=== PATIENT | female | born 1995 | race African-American/Black ===

== ENCOUNTER 2017-08-15 19:51 | Emergency (ER) | payer MEDICARE, OTHER ==
[~2017-08-15] VITALS: Ht 167.6 cm; Wt 78.9 kg
[2017-08-15 21:02] LABS: BASOPHILS % 0.6 % (0.0-1.0); EOSINOPHILS # (AUTO) 0.1 (0.0-0.4); EOSINOPHILS % 1.7 % (0.0-6.0); HEMATOCRIT 39.6 % (34.2-44.1); LYMPHOCYTES # (AUTO) 3.2 (1.0-3.2); LYMPHOCYTES % 43.9 % (18.0-39.1); MEAN CORPUSCULAR HEMOGLOBIN 29.5 pg (28-32); MEAN CORPUSCULAR HGB CONC 32.8 g/dL (31-35); MONOCYTES # (AUTO) 0.4 (0.2-0.8); MONOCYTES % 5.4 % (4.4-11.3); NEUTROPHILS # (AUTO) 3.5 (2.1-6.9); NEUTROPHILS % 48.3 % (38.7-80.0); PLATELET COUNT 242 x10e3/uL (140-360); RED CELL DISTRIBUTION WIDTH 11.6 % (11.7-14.4)
[2017-08-15 21:29] LABS: CLARITY,URINE CLEAR (CLEAR); COLOR,URINE YELLOW (YELLOW)
[2017-08-15 21:30] LABS: BILIRUBIN,URINE NEGATIVE (NEGATIVE); KETONES,URINE 1+ (NEGATIVE); LEUKOCYTE ESTERASE ,URINE NEGATIVE (NEGATIVE); NITRITE,URINE NEGATIVE (NEGATIVE); PROTEIN,URINE DIPSTICK NEGATIVE (NEGATIVE); URINE UROBILINOGEN 0.2 mg/dL (0.2 - 1)
[2017-08-15 21:40] LABS: EPITHELIAL CELLS,URINE MODERATE /LPF
[2017-08-15 21:41] LABS: RBC,URINE 0-5 /HPF (0-5); WBC,URINE (MAN) 0-5 /HPF (0-5)
[2017-08-15 22:17] VITALS: BP 104/69
== END 2017-08-15 22:00 | disposition home or self-care (01) ==
LOC: ER 19:51
DX: O20.9 Hemorrhage in early pregnancy, unspecified (principal)
CPT/HCPCS: 36415; 81001; 84702; 85025; 99283